=== PATIENT | female | born 1985 | race Caucasian/White ===

== ENCOUNTER 2017-10-13 08:30 | Emergency (ER) | payer OTHER, SELFPAY ==
[2017-10-13 08:40] VITALS: BP 142/87; PULSE 88; RESP 20; TEMP 36.8; O2SAT 100
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
[2017-10-13 10:00] VITALS: BP 120/78; PULSE 88; RESP 12; O2SAT 99
== END 2017-10-13 11:11 | disposition home or self-care (01) ==
PROVIDERS: Emergency Provider Emergency Medicine
DX: S63.602A Unspecified sprain of left thumb, initial encounter (principal); V49.9XXA Car occupant (driver) (passenger) injured in unspecified traffic accident, initial encounter
CPT/HCPCS: 73140; 99282; 99283

== ENCOUNTER → 2018-02-02 11:00 | Outpatient (CLI) | payer OTHER, SELFPAY | DX: Z23 Encounter for immunization (principal) | CPT/HCPCS: 90471; 90686 ==

== ENCOUNTER → 2019-02-21 08:16 | Outpatient (CLI) | payer OTHER, SELFPAY | DX: Z23 Encounter for immunization (principal) | CPT/HCPCS: 90471; 90686 ==

== ENCOUNTER → 2020-02-14 02:55 | Outpatient (CLI) | payer OTHER, SELFPAY | PROVIDERS: Referring Provider Internal Medicine; Visit Provider Internal Medicine | DX: Z23 Encounter for immunization (principal) | CPT/HCPCS: 90471; 90686 ==

== ENCOUNTER → 2020-05-06 07:45 | Outpatient (CLI) | payer OTHER, SELFPAY ==
[2020-05-06] MEDS: COVID-19 VACC(MODERNA-1)/PF 100 MCG/0.5 ML VIAL IM (08:00)
== END ==
PROVIDERS: Visit Provider Internal Medicine
DX: Z23 Encounter for immunization (principal)
CPT/HCPCS: 0011A; 91301

== ENCOUNTER → 2020-06-02 07:21 | Outpatient (CLI) | payer OTHER, SELFPAY ==
[2020-06-02] MEDS: COVID-19 VACC #2, MRNA(MOD) 100 MCG/0.5 ML VIAL IM (07:26)
== END ==
PROVIDERS: Visit Provider Internal Medicine
DX: Z23 Encounter for immunization (principal)
CPT/HCPCS: 0012A; 91301

== ENCOUNTER → 2021-02-11 | Outpatient (CLI) | payer OTHER, SELFPAY | PROVIDERS: Referring Provider Internal Medicine; Visit Provider Internal Medicine | DX: Z23 Encounter for immunization (principal) | CPT/HCPCS: 90471; 90686 ==

== ENCOUNTER → 2021-05-18 07:40 | Outpatient (CLI) | payer OTHER, SELFPAY ==
[2021-05-18 08:32] LABS: Appearance Urine UA CLEAR; Bilirubin Urine UA NEGATIVE (NEGATIVE); Color Urine UA YELLOW; Glucose Urine UA NEGATIVE (Negative); Ketones Urine UA NEGATIVE (NEGATIVE); Leukocyte Esterase Urine UA NEGATIVE (NEGATIVE); Nitrite Urine UA NEGATIVE (Negative); Occult Blood Urine UA NEGATIVE (Negative); Protein Urine UA NEGATIVE (Negative); Urobilinogen Urine UA 0.2 E.U./dL (0.2)
[2021-05-18 08:48] LABS: Add Manual Diff / Slide Review NO; Basophils Absolute Auto 0 /uL (0-100); Basophils Percent Auto 0.4 % (0-2); Eosinophils Absolute Auto 100 /uL (0-450); Hematocrit 38.4 % (36-46); Hemoglobin 13.3 g/dL (12.0-16.0); Lymphocytes Absolute Auto 3100 /uL (1100-4500); Lymphocytes Percent Auto 26.4 % (25-40); Mean Corpuscular HGB Conc 34.7 % (30-36); Mean Corpuscular Hemoglobin 29.9 PG (26-34); Mean Corpuscular Volume 86.3 fL (80-100); Monocytes Absolute Auto 500 /uL (0-900); Monocytes Percent Auto 4.2 % (3-14); Neutrophils Absolute Auto 8100 /uL (1500-7000); Platelet Count 274 X10^3/uL (150-400); Red Blood Cell Count 4.45 X10^6/uL (4.0-5.2); Red Cell Distribution Width 12.9 % (11.6-14.8); White Blood Cell Count 11.8 X10^3/uL (4.5-11.0)
[2021-05-18 09:01] LABS: Specimen Label NATERA
[2021-05-19 04:36] LABS: RPR Screen Non Reactive (Non Reactive); Varicella IgG Antibody 1164 index (Immune >165)
[2021-05-19 17:25] LABS: Hepatitis B Surface Antigen NEGATIVE s/c (NEGATIVE); Rubella Antibody IgG 57.7 IU/mL (>15)
[2021-05-19 17:41] LABS: HIV 1 & 2 Ab/Ag 4th Gen Combo NEGATIVE (NEGATIVE); Hep C Virus Ab w/Reflex Quant NEGATIVE s/c (NEGATIVE)
== END ==
PROVIDERS: Referring Provider Obstetrics & Gynecology; Visit Provider Obstetrics & Gynecology
DX: Z34.81 Encounter for supervision of other normal pregnancy, first trimester (principal)
CPT/HCPCS: 80055; 81003; 86787; 86803; 86850; 86900; 86901; 87086; 87389

== ENCOUNTER → 2021-07-18 19:09 | Outpatient (ROUT) | payer OTHER, SELFPAY ==
[2021-07-18 20:46] LABS: Urine N gonorrhoeae NOT DETECTED
[2021-07-18 20:49] LABS: Urine Chlamydia NOT DETECTED
== END ==
PROVIDERS: Visit Provider Obstetrics & Gynecology
DX: Z34.82 Encounter for supervision of other normal pregnancy, second trimester (principal); Z3A.20 20 weeks gestation of pregnancy
CPT/HCPCS: 87491; 87591

== ENCOUNTER → 2021-08-01 14:03 | Outpatient (CLI) | payer OTHER, SELFPAY ==
--- NOTE | 2021-08-01 14:04 | DI.US.S_ITS ---
PROCEDURE: US OB >= 14 WEEKS FETUS INDICATIONS: ANATOMY OUTSIDE/PRIOR DATING DATA: Last menstrual period (LMP): 02/28/2021 LMP-based estimated date of delivery (JEAN): 12/05/2021. First dating scan (date and location): 05/10/2021. Estimated date of delivery (JEAN) from first dating scan: 12/08/2021. The calculations are made using the ultrasound JEAN of 12/08/2021. TECHNIQUE: Real-time scanning was performed of the fetus, with image documentation and biometric measurements. COMPARISON: [facility], , OB <= 14 WEEKS FETUS, 05/10/2021, 16:09. FINDINGS: General: A single living intrauterine gestation is present. Presentation: Vertex. Placenta: Placental position is posterior , without previa. Amniotic fluid index: 16.5 cm, normal range is 5-24 cm. heart rate: 137 beats per minute. Maternal cervical canal: 4.8 cm long. Normal lower limit is 2.5 cm. biometrics: Biparietal diameter: 21 weeks 2 days Head circumference: 21 weeks 5 days Abdominal circumference: 21 weeks 1 day Femur length: 22 weeks 2 days Clinically estimated gestational age: 21 weeks 4 days Composite gestational age from present scan: 21 weeks 4 days Estimated weight and percentile: 440 g; 48th percentile Anatomic survey: Neuro: Ventricles are non-dilated at less than 10 mm. Cisterna magna is normal at 3-11 mm. Cerebellum is normal in size and morphology. Nuchal skin fold: Normal at less than 6 mm between 14-21 weeks gestational age. Face: Nose and lips, facial profile are normal. Spine: No evidence for spina bifida. Heart: 4-chambered heart is present, with normal ventricular outflow tracts. Diaphragm: Diaphragm is intact. Stomach: Left-sided stomach is present. Kidneys: No hydronephrosis. Normal is less than 5 mm in 2nd trimester, less than 7 mm in 3rd trimester. Cord: 3-vessel cord has orthotopic insertion. Bladder: Normal in size. Extremities: All 4 extremities identified. IMPRESSION: 1. Single living IUP redemonstrated and interval growth is normal. 2. Normal anatomic survey. We strive to produce accurate, complete, and clear reports of imaging services. To assist us in improving patient care, this report was composed using standard report templates and voice recognition software. Therefore, it may contain abnormal punctuation, insertions and/or omissions. Occasional wrong-word or sound-alike substitutions may occur. Though we review the report and make efforts to correct it, we do recommend that the report be read carefully in proper context to recognize any text inaccuracies. Dictated by: Chris GORDILLO Interpreted: Jeff Espino MD on 08/01/2021 at 15:12 Transcribed by: AIXA on 08/01/2021 at 15:13 Approved by: Jeff Espino M.D. on 08/01/2021 at 18:11
== END ==
PROVIDERS: Referring Provider Obstetrics & Gynecology; Visit Provider Obstetrics & Gynecology
DX: Z34.82 Encounter for supervision of other normal pregnancy, second trimester (principal); Z3A.21 21 weeks gestation of pregnancy
CPT/HCPCS: 76811

== ENCOUNTER → 2021-09-02 04:08 | Outpatient (CLI) | payer OTHER, SELFPAY ==
[2021-09-02 08:24] LABS: Hematocrit 34.3 % (36-46); Hemoglobin 11.6 g/dL (12.0-16.0)
[2021-09-02 08:31] LABS: GTT (PREG) 1 Hour PP 50gm Dose 78 mg/dL (76-139)
== END ==
PROVIDERS: Referring Provider Obstetrics & Gynecology; Visit Provider Obstetrics & Gynecology
DX: Z34.82 Encounter for supervision of other normal pregnancy, second trimester (principal); Z3A.26 26 weeks gestation of pregnancy
CPT/HCPCS: 36415; 82950; 85014; 85018

== ENCOUNTER → 2021-11-08 10:37 | Outpatient (CLI) | payer OTHER, SELFPAY ==
[2021-11-09 08:00] LABS: Strep Grp B PCR NEG for Grp B Strep
== END ==
PROVIDERS: Visit Provider Obstetrics & Gynecology
DX: Z34.83 Encounter for supervision of other normal pregnancy, third trimester (principal); Z3A.36 36 weeks gestation of pregnancy
CPT/HCPCS: 87653

== ENCOUNTER 2021-12-06 13:43 | Outpatient (CLI) | payer OTHER, SELFPAY ==
[2021-12-07 11:00] LABS: COVID19 -Nasal RAPID Negative (Negative)
== END 2021-12-06 14:35 | disposition home or self-care (01) ==
LOC: LABOR 14:41 → OB 12-07 11:37
PROVIDERS: Referring Provider Obstetrics & Gynecology; Visit Provider Obstetrics & Gynecology
DX: Z34.83 Encounter for supervision of other normal pregnancy, third trimester (principal); Z3A.40 40 weeks gestation of pregnancy
CPT/HCPCS: 59025; 87635; C9803; G0378; G0379

== ENCOUNTER 2021-12-07 09:42 | Inpatient (IN) | payer OTHER, SELFPAY ==
[2021-12-07 10:15] VITALS: BP 114/66
[2021-12-07 10:48] LABS: Add Manual Diff / Slide Review NO; Basophils Absolute Auto 100 /uL (0-100); Basophils Percent Auto 0.6 % (0-2); Eosinophils Absolute Auto 100 /uL (0-450); Eosinophils Percent Auto 0.7 % (2-4); Hematocrit 33.8 % (36-46); Hemoglobin 11.3 g/dL (12.0-16.0); Lymphocytes Absolute Auto 1700 /uL (1100-4500); Lymphocytes Percent Auto 14.5 % (25-40); Mean Corpuscular HGB Conc 33.6 % (30-36); Mean Corpuscular Hemoglobin 28.8 PG (26-34); Monocytes Absolute Auto 500 /uL (0-900); Monocytes Percent Auto 4.2 % (3-14); Neutrophils Absolute Auto 9400 /uL (1500-7000); Platelet Count 188 X10^3/uL (150-400); Red Blood Cell Count 3.93 X10^6/uL (4.0-5.2); Red Cell Distribution Width 14.5 % (11.6-14.8); White Blood Cell Count 11.7 X10^3/uL (4.5-11.0)
--- NOTE | 2021-12-07 11:05 | P.HPOB_ITS ---
OB HPI Date/Time Date of admission: 12/07/21 Date Patient Seen: 12/07/21 Time Patient Seen: 11:05 History of Present Condition Chief complaint: OBS JEAN Calculator Estimated Delivery Date Method Current WG Current Estimate 12/05/21 LMP (Uncertain) 40w 2d Other Estimates 12/08/21 Ultrasound #1 39w 6d Estimated Gestational Age (weeks): 40+2 : 3 Para: 2 care: good care, initiated at week # (10), number of visits (12) and pounds weight gain (42) Ultrasounds: normal 1st trimester US and normal mid trimester US Obstetrical complications: other (oligohydramnios) Medical complications OB: none Indications Indication for induction OB: post dates (AMA) Preadmission Labs Last OB Lab Results: Blood Type B Positive 12/07/21 10:31 Antibody Screen Negative 12/07/21 10:31 Hematocrit 33.6 % (36-46) L 12/07/21 10:31 Hemoglobin 11.3 g/dL (12.0-16.0) L 12/07/21 10:31 Hepatitis B Surface Antigen Negative s/c (NEGATIVE) 05/18/21 07 :57 Hepatitis C Antibody Negative s/c (NEGATIVE) 05/18/21 07:57 Rubella Antibody 57.7 IU/mL (>15) 05/18/21 07:57 Varicella-Zoster IgG Antibody 1164 index (Immune >165) 05/18/21 07:57 Glucose 1 Hour 78 mg/dL (76-139) 09/02/21 07:01 Group B Streptococcus (PCR) Neg for grp b strep 11/08/21 10:37 -: Chlamydia screen: negative, Gonorrhea screen: negative and Urine: negative -: PAP smear: Normal Genetic Screens: Cell-free DNA: Normal and Alpha-fetoprotein: Normal External Labs -: Urine: negative Prior (ies) Past Pregnancies Del. Date GA/Weeks Labor Lgth Wt Sex Route Outcome Anesthesia Place Delv Breastfeed Preg Comp Name 03/13/13 39.4 4 6 lb 8 oz Male vaginal live - full ter m intravenous analg esics NHOH 10 mos. none Michael 09/10/14 39.5 3 8 lb 1 oz Male vaginal live - full term ep idural NHOH 12 mos. none [place] Delivery Date: 11/07/13 Last Updated by: Arianne Dickson R.N. SROM without Ctx, spont labor ensued. Tear w repair, a few stitches. No complications. Delivery Date: 09/10/14 Last Updated by: Arianne Dickson R.N. Fast labor. AROM before pushing. Evaluation Evaluation Baseline heart rate: 140 Variability: Moderate (11-25) monitor accelerations: Present Monitor Decelerations: Absent Status: Category l Dilation (cm): 4 Effacement (%): 80 station: -1 Position of cervix: mid Consistency: medium PFSH Medical History (Updated 06/05/21 @ 15:24 by Natacha Maria MD) Acne GERD (gastroesophageal reflux disease) (~2010) Hay fever PCOS (polycystic ovarian syndrome) Surgical History (Updated 05/04/21 @ 09:20 by Arianne Dickson RN) Anesthesia History of shoulder surgery (~2006) History of tonsillectomy (~1992) [place] teeth extracted (~2002) Family History (Updated 05/04/21 @ 09:22 by Arianne Dickson RN) Father Pulmonary fibrosis Mother Low TSH level Sister Anxiety Grandfather History of heart disease Grandmother Breast cancer Grandfather History of heart disease Grandmother Diabetes mellitus Hypertension Hyperlipidemia Sister Preeclampsia Social History marital status: number of children: 2 household members: spouse lives independently: Yes caregiver/support person: No housing: house pets and animals: Yes (1 dog, 1 cat: aware) education level: college occupational status: employed current occupational exposures/hazards: Yes (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 ) shay/oriental orthodox: Orthodox Saint / Latter Day special shay needs: No seatbelt use: always helmet use: Yes water heater temp set < 120 deg: Yes working smoke detector in home: Yes fire extinguisher in home: Yes carbon monox detector in home: Yes do you feel safe at home: Yes Smoking Status: Never smoker second hand exposure: No alcohol intake: never substance use type: does not use during the past year weight has: decreased > 10 lbs well-balanced diet: about half the time caffeine: Yes (Doing less than 200 mg / daily. ) Type(s) of exercise: none Meds Home Medications and Allergies Home Medications Medication Instructions Recorded Confirmed Type ondansetron 4 mg disintegrating 4 mg PO Q8H #20 tabs 04/21/21 12/06/21 Rx tablet fluticasone propionate 50 1 spray intranasal DAILY 05/04/21 12/06/21 History mcg/actuation nasal spray,suspension (Flonase Allergy Relief) melatonin 5 mg capsule mg PO .prn 05/04/21 12/06/21 History prenat.vits,efra,ocy-vcfj-fkcoz 1 tab PO DAILY 05/04/21 12/06/21 History omeprazole 20 mg capsule,delayed 20 mg PO DAILY 05/10/21 12/06/21 History release Allergies Allergy/AdvReac Type Severity Reaction Status Date / Time No Known Drug Allergies Allergy Verified 12/06/21 14:42 OB Exam Narrative Exam Narrative: Generally: Patient is sitting up in bed, no acute distress Fundal height: 40 cm Estimated weight: 7 and half to 8 lb Extremities: Trace edema Objective Labs Result Diagrams: 12/07/21 10:31 Assessment and Plan Assessment and Plan Assessment and Plan narrative: Assessment: 36-year-old 3 para 2 at 40-,2/7 weeks gestation for induction of labor due to oligohydramnios Plan: Pitocin per protocol 2 Epidural as necessary Expected management to spontaneous vaginal delivery Time Spent with Patient Total time spent with greater than 50% in coordination of care (as documented) at patient's floor/unit and/or counseling patient:: 15-24 minutes
[2021-12-07] MEDS: LACTATED RINGERS 1,000 ML 100 ML IV (11:12)
[2021-12-07] MEDS: OXYTOCIN PREMIX 30 UNIT/500 ML PLAST..BAG IV (11:12)
[2021-12-07 12:33] LABS: Add Manual Diff / Slide Review NO; Basophils Absolute Auto 0 /uL (0-100); Basophils Percent Auto 0.2 % (0-2); Eosinophils Absolute Auto 100 /uL (0-450); Eosinophils Percent Auto 0.7 % (2-4); Hematocrit 33.6 % (36-46); Hemoglobin 11.3 g/dL (12.0-16.0); Lymphocytes Absolute Auto 1800 /uL (1100-4500); Lymphocytes Percent Auto 15.7 % (25-40); Mean Corpuscular HGB Conc 33.6 % (30-36); Mean Corpuscular Hemoglobin 28.9 PG (26-34); Mean Corpuscular Volume 86.2 fL (80-100); Monocytes Absolute Auto 500 /uL (0-900); Monocytes Percent Auto 4.4 % (3-14); Neutrophils Absolute Auto 9200 /uL (1500-7000); Platelet Count 184 X10^3/uL (150-400); Red Cell Distribution Width 14.5 % (11.6-14.8); White Blood Cell Count 11.6 X10^3/uL (4.5-11.0)
--- NOTE | 2021-12-07 13:01 | PM.OBPNLAB ---
Date/Time Date Patient Seen: 12/07/21 Time Patient Seen: 12:30 Pain Control Pain control: epidural Pelvic Exam Dilation (cm): 5 Effacement (%): 95 station: -1 Amniotic membrane status: Bulging Contractions Contractions on admission: none Pitocin rate (mU/min): 9 Contraction frequency (min): 3 Contraction duration (min): 1 Contraction pattern: Regular Contraction intensity: Strong/Firm Status status: Category l Heart Rate Baseline: 140 Monitor Accelerations: Present Monitor Decelerations: Absent Monitor Variability: Moderate Assessment and Plan Assessment: induction ongoing Comments: AROM with small amount of clear amniotic fluid
--- NOTE | 2021-12-07 16:48 | P.PCNOB_ITS ---
Events: Labor Induction Labor & Delivery Delivery date: 12/07/21 Intrapartal Events: Precipitous Labor < 3 hours Cervical ripening method: none Induction method: per pitocin protocol Delivery augmentation: rupture of membranes Delivery monitor: external FHT and external uterine Route of delivery: Episiotomy description: None L&D Laceration Description: Perineal - 1st Degree and Vaginal - 1st Degree Delivery repair: chromic Estimated blood loss (mL): 200 Anesthesia Type: Epidural Complications: None Narrative: Patient complete and pushed for 12 minutes. At 4:32 p.m., a live female delivered spontaneously in the LISANDRO presentation over an intact perineum. The remainder of the body delivered without difficulty and the infant was placed on mom's abdomen. After the cord stopped pulsing, the cord was double clamped and cut. Cord bloods were obtained. Pitocin was given in the IV fluids. The placenta delivered intact with a three-vessel cord at 4:38 p.m.. The fundus was massaged to firm. A first-degree vaginal/perineal laceration was repaired with 2-0 chromic in the usual fashion. Hemostasis was achieved. weight 7 lb 1 oz. Apgars 9 at 1 minute and 9 at 5 minutes. Estimated blood loss 200 cc. Epidural analgesia. . Mom and infant stable to recovery. [place] Baby 1: gender: Female Presentation: vertex Position: Left Occiput Anterior Placenta delivery description: Spontaneous Cord Vessel Description: 3 Vessels, Nuchal Cord (X1) and Clamped/Cut score (1 min): 9 score (5 min): 9 weight: 7 lb 1 oz Plan for aftercare: Routine care
[2021-12-08] MEDS: IBUPROFEN 600 MG TABLET PO (01:30)
[2021-12-08 06:11] LABS: Hematocrit 28.9 % (36-46); Hemoglobin 9.8 g/dL (12.0-16.0)
[2021-12-08] MEDS: KETOROLAC 30 MG/ML VIAL IV (09:20)
--- NOTE | 2021-12-08 16:36 | P.DS_ITS ---
Discharge Providers Provider Date of admission: 12/07/21 09:42 Discharge Date: 12/08/21 Discharge provider: Natacha Maria MD Summary Hospital Course Date Patient Seen: 12/08/21 Time Patient Seen: 09:30 Diagnoses: 39-4/7 weeks gestation Induction of labor with Pitocin Artificial rupture of membranes Epidural analgesia Spontaneous vaginal delivery First-degree vaginal/perineal laceration and repair Hospital Course: Patient is a 36-year-old 3 para 3 who presented on December 07, 2021 for a scheduled induction of labor. She received Pitocin per protocol 2. She received an epidural for pain management. Artificial rupture membranes was performed. She progressed to complete dilation quickly. She pushed for 20 minutes. She had a spontaneous vaginal delivery without complication. Her course was unremarkable. She was discharged home on day # 1. She is to follow up at 6 weeks. Peripartum Data Delivery Method: Natural Vaginal Laceration Description: Perineal - 1st Degree and Vaginal - 1st Degree Episiotomy description: None Procedures: Pitocin induction of labor Artificial rupture of membranes Epidural analgesia Spontaneous vaginal delivery First-degree vaginal/perineal laceration repair complications: none [place] 1: Gender: Female Disposition of : home Status at Discharge Cognitive/behavioral status at discharge: oriented Functional status at discharge: independent ambulation Overall status at discharge: patient is progressing back to baseline Time Spent with Patient Time attestation: Total time spent providing and/or coordinating discharge services: Time spent: Less than 30 minutes Objective Labs Result Diagrams: 12/08/21 05:43 Labs: Laboratory Results - last 24 hr 12/08/21 05:43 Hgb 9.8 L Hct 28.9 L Exam Narrative Exam Narrative: Generally: Patient is sitting up in chair, holding , no acute distress Fundus: Firm at U -1 Extremities: Trace edema, negative [place] Discharge Plan Discharge Plan Patient Disposition: Home Provider Discharge Comment: Call with fever, chills, or bleeding vaginally more than a pad in an hour Ibuprofen 600 mg every 6 hours as needed for cramping Discharge orders & Medications Prescriptions: Continued prenat.vits,efra,shf-xhpa-sxwfd Tablet 1 tab PO DAILY melatonin 5 mg capsule PO .prn fluticasone propionate [Flonase Allergy Relief] 50 mcg/actuation spray,suspension 1 spray intranasal DAILY Rx Instructions: administer into each nostril Discontinued ondansetron 4 mg tablet,disintegrating 4 mg PO Q8H Qty: 20 2RF omeprazole 20 mg capsule,delayed release(DR/EC) 20 mg PO DAILY Follow up/Referrals: Natacha Maria MD [Physician] - 6 Weeks (Dr. Maria: @ 2pm) Diet/Activity/Treatments Diet: Regular Activity: Nothing in the vagina for 6 weeks Skin/Wound/Dressing Care Report to your healthcare provider any signs of infection, such as:: chills, fever, increased pain and unusual drainage Visit Report/Discharge Packet Instructions: DI for Labor and Delivery, Vaginal Stand Alone Forms: Discharge: Care
== END 2021-12-08 11:25 | disposition home or self-care (01) | DRG 806 ==
PROVIDERS: Admitting Provider Obstetrics & Gynecology; Referring Provider Obstetrics & Gynecology; Visit Provider Obstetrics & Gynecology
DX: O48.0 Post-term pregnancy (principal); O41.03X0 Oligohydramnios, third trimester, not applicable or unspecified; Z37.0 Single live birth; Z3A.40 40 weeks gestation of pregnancy; O70.0 First degree perineal laceration during delivery; O62.3 Precipitate labor; Z20.822 Contact with and (suspected) exposure to COVID-19; Z34.83 Encounter for supervision of other normal pregnancy, third trimester
CPT/HCPCS: 01967; 36415; 59025; 59050; 59400; 85014; 85018; 85025; 86850; 86900; 86901; 87635; C9803; G0379; J1885; J2590

== ENCOUNTER → 2022-03-03 10:45 | Outpatient (CLI) | payer OTHER, SELFPAY ==
[2022-03-03 11:29] LABS: COVID19 -Nasal RAPID Negative (Negative)
== END ==
PROVIDERS: Visit Provider Obstetrics & Gynecology
DX: Z20.822 Contact with and (suspected) exposure to COVID-19 (principal); Z01.812 Encounter for preprocedural laboratory examination
CPT/HCPCS: 87635

== ENCOUNTER 2022-03-06 11:03 | Day surgery (SDC) | payer OTHER, SELFPAY ==
[2022-03-06] VITALS (10 sets, daily range): BP systolic 98–124; BP diastolic 56–85; PULSE 69–83; RESP 9–18; TEMP 36.1–36.6; O2SAT 95–100; BMI 35.1
--- NOTE | 2022-03-06 | PATH_ITS ---
[facility] Accession Number: [id number] . 01 Material submitted: . fallopian tube - BILATERAL FALLOPIAN TUBES . 01 Diagnosis: Bilateral Fallopian Tubes: Longer fallopian tube, complete cross-sections, with a benign paratubal cyst (4 mm); negative for atypia or malignancy. Buckner fallopian tube, complete cross-sections, with a benign paratubal cyst (8 mm); negative for atypia or malignancy. MRV 03/09/2022 1433 Local . 01 Electronically signed: . Akilah Knox MD, Pathologist NPI- [id number] . 01 Gross description: . The specimen is received in formalin labeled with the patient's name and bilateral fallopian tubes, and consists of two unoriented fimbriated fallopian tubes measuring 8.4 x 0.9 cm and 6.8 x 0.7 cm, respectively. The longer fallopian tube has congested smooth serosa with a cystic structure near the fimbriated end measuring 0.4 cm in greatest dimension filled with clear serous fluid. Sectioning reveals an unremarkable stellate lumen. The shorter fallopian tube has collins smooth serosa with a cystic structure near the fimbriated end measuring 0.8 cm in greatest dimension filled with clear serous fluid. Sectioning reveals an unremarkable stellate lumen. Teaching Associate sections to include cross-sections and entire bisected fimbriae are submitted as follows: . A1: Longer fallopian tube. A2: Buckner fallopian tube. ([id number]) /MRV 03/08/2022 1319 Local . 01 Pathologist provided ICD-10: Z30.2 . 01 CPT . 511792 Specimen Comment: A courtesy copy of this report has been sent to [phone] Performed at: 01 [facility] [address], [place], [place] [id number] MD Haris Gautam MD Phone: [phone]
[2022-03-06] MEDS: LACTATED RINGERS 1,000 ML 100 ML IV (11:47)
--- NOTE | 2022-03-06 11:47 | P.HP_ITS ---
History of Present Illness History of Present Illness Date Patient Seen: 03/06/22 Time Patient Seen: 11:48 Chief complaint: LAP TEVIN SALPINGECTOMY Narrative: Patient is a 36-year-old 3 para 3 who presents for a laparoscopic bilateral salpingectomy for permanent sterilization. Patient History Medical History (Updated 03/03/22 @ 07:50 by Tianna Poe RN) Acne GERD (gastroesophageal reflux disease) (~2010) Hay fever PCOS (polycystic ovarian syndrome) (spontaneous vaginal delivery) (12/07/21) Surgical History (Updated 05/04/21 @ 09:20 by Arianne Dickson RN) Anesthesia History of shoulder surgery (~2006) History of tonsillectomy (~1992) [place] teeth extracted (~2002) Family & Social History Family History (Updated 05/04/21 @ 09:22 by Arianne Dickson RN) Father Pulmonary fibrosis Mother Low TSH level Sister Anxiety Grandfather History of heart disease Grandmother Breast cancer Grandfather History of heart disease Grandmother Diabetes mellitus Hypertension Hyperlipidemia Sister Preeclampsia Social History: household members spouse,children lives independently Yes caregiver/support person No Tobacco & Substance use: Smoking Status Never smoker alcohol intake current alcohol intake frequency holiday/special occasion Substance Use Type does not use Meds Home Medications and Allergies Home Medications Medication Instructions Recorded Confirmed Type fluticasone propionate 50 1 spray intranasal DAILY 05/04/21 03/06/22 History mcg/actuation nasal spray,suspension (Flonase Allergy Relief) melatonin 5 mg capsule 5 mg PO .prn 05/04/21 03/06/22 History prenat.vits,efra,evu-tmpk-jezwk 1 tab PO DAILY 05/04/21 03/06/22 History Allergies Allergy/AdvReac Type Severity Reaction Status Date / Time adhesive tape Allergy Intermediate skin loss Verified 03/06/22 11:49 Exam Narrative Exam Narrative: HEENT: No thyromegaly, no anterior cervical or supraclavicular lymphadenopathy. Lungs:Clear to auscultation bilaterally, no wheezes. Cardiovascular: Regular rate and rhythm, no murmurs, rubs, or gallops. Abdomen: No scars. No hepatosplenomegaly. No masses palpable. External genitalia: Normal Vagina: Normal Cervix: Normal Bimanual exam: 8 Week size uterus. Mobile. No adnexal masses or tenderness Extremities: No edema Assessment & Plan Assessment & Plan narrative: Assessment: 36-year-old 3 para 3 who desires permanent sterilization Plan: Laparoscopic bilateral salpingectomy The risks including bleeding, infection, injury to the bowel, bladder, ureters were explained to the patient. She understands these risks and agrees to proceed. A full par Q was held and consent signed COVID-19 COVID-19 status: Negative Result date/Date tested (Pos, Neg/Pending): 03/03/22 Time Spent With Patient Time with patient: less than 30 minutes Critical Care time: I spent a total of [] minutes of critical care time on this patient's care today; this time is exclusive of procedural time.
--- NOTE | 2022-03-06 11:52 | PM.PREOP ---
Pre-operative Note COVID-19 COVID-19 status: Negative Result date/Date tested (Pos, Neg/Pending): 03/03/22 Criteria for continued procedure: Non-surgical alternatives not available or appropriate per current SOC Interval Note History & Physical reviewed/Exam performed by Physician: Yes Changes to H&P: No H&P completed within 30 days and has changed as indicated here:: 03/06/22
[2022-03-06] MEDS: SCOPOLAMINE 1 PATCH TOP (12:13)
--- NOTE | 2022-03-06 12:43 | SUR.OPER ---
Lithotomy on padded OR bed, head on pillow, arms secured on padded arm boards at <90 degrees abduction. Legs secured in padded yellow fins stirrups. Patient voided around 1215 in preop area prior to entering OR. Patients cell phone placed in patients belongings bag in preop area.
[2022-03-06] MEDS: BUPIVACAINE 0.5% W/ EPI (PF) 30 ML VIAL INJ (12:54)
--- NOTE | 2022-03-06 13:14 | P.OP_ITS ---
Operative Date/Time/Diagnoses Date of procedure: 03/06/22 Time of procedure: 13:14 Pre-op diagnosis: 3 para 3 Desires permanent sterilization Post-op diagnosis: same Procedure & Clinicians Procedure: Procedures Operation Date: 03/06/22 12:15 Actual Procedure Side Surgeon p Laparoscopic Salpingectomy Bilateral Natacha Maria MD Indications: Multipartiy Desires permanent sterilization Surgeon: Natacha Maria Anesthesia Type: General and Local Operative Notes Findings: 7 wk size anteverted uterus Normal liver and gallbladder Normal appendix Normal uterus, tubes and ovaries Closure Type: primary Specimen(s): left tube and right tube Estimated blood loss (mL): 5 Blood products transfused: none Procedure in detail: After informed consent obtaine, the patient was taken to the operating room and placed in the dorsal supine position. After GET anesthesia was achieved, she was placed in the dorsal lithotomy position and prepped and draped in the usual sterile fashion. A timeout was performed. A bivalve speculum was placed into the vagina and the anterior lip of the cervix was grasped with a single tooth tenaculum. The cervical os was dilated until the ZUMI uterine manipulator could pass easily into the endometrial cavity. The single tooth tenaculum was removed from the anterior lip of the cervix and the bivalve speculum was removed from the vagina. Attention was turned to the abdomen where 6 cc of 0.5% Marcaine with epinephrine were injected in the umbilical fold. A 5 mm incision was made. The Veress needle was placed into the peritoneal cavity, and its placement confirmed by aspiration and drop test. The abdominal cavity was insufflated with 4.3 L of CO2. The Veress needle was removed, and a 5 mm trocar was placed without difficulty. Two other incisions were made 4 cm lateral to the midline a fter 6 cc of 0.5% Marcaine with epinephrine were injected. Two other 5 mm incisions were made. Two 5 mm trocars were placed under direct visualization. The right tube was grasped with the atraumatic grasper. Using the power seal, the mesosalpinx was cauterized and cut all the way down to the cornua of the uterus. The tube was amputated at the cornua. The tube was removed through the left trocar. All of this was repeated on the patient's left tube and the tube removed through the right trocar. Hemostasis was achieved. The instruments were removed from the abdomen. The CO2 was allowed to escape. The incisions were repaired with 4-0 Monocryl in a subcuticular fashion. Steri-Strips and Allevyn dressings were placed. The Zumi uterine manipulator was removed from the uterus. Sponge, lap, and instrument counts were correct x2. The patient tolerated the procedure well, and was taken to PACU in stable condition. Complications: none Post-operative Condition: stable Disposition: PACU Plan for aftercare: Home after recovery
[2022-03-06] MEDS: ONDANSETRON 4 MG/2 ML INJ IV (13:38)
== END 2022-03-06 14:20 | disposition home or self-care (01) ==
PROVIDERS: Referring Provider Obstetrics & Gynecology; Visit Provider Obstetrics & Gynecology
PROC: 0UT74ZZ Resection of Bilateral Fallopian Tubes, Percutaneous Endoscopic Approach (ICD-10-PCS; CPT 58661; principal; 2022-03-06 12:15)
DX: Z30.2 Encounter for sterilization (principal)
CPT/HCPCS: 58661; 81025; J2250; J2405; J3010

== ENCOUNTER → 2023-02-06 11:13 | Outpatient (CLI) | payer OTHER, SELFPAY | PROVIDERS: Referring Provider Family Medicine; Visit Provider Family Medicine | DX: Z23 Encounter for immunization (principal) | CPT/HCPCS: 90471; 90686 ==

== ENCOUNTER → 2024-02-15 17:50 | Outpatient (CLI) | payer OTHER, SELFPAY | PROVIDERS: Referring Provider Internal Medicine; Visit Provider Internal Medicine | DX: Z23 Encounter for immunization (principal) | CPT/HCPCS: 90471; 90656 ==